=== PATIENT | female | born 1985 | race Caucasian/White ===

== ENCOUNTER 2018-11-25 23:41 | Emergency (ER) | payer BC ==
[~2018-11-25] VITALS: Ht 160 cm; Wt 63.5 kg
--- OUTSIDE RECORDS SUMMARY | 2018-11-25 23:43 | XMS REPORT | Encounter Summary ---
Author Organization Unknown Address [address] [place] [address] Phone [phone] Reason for Visit Medical Complaint Instructions 1. Upper respiratory infection upper respiratory infection (cold): care instructions 2. Feeling feverish rapid flu (A+B) 3. Pain in throat sore throat: care instructions rapid strep group A, throat Discussion Note: None recorded. Plan of Care Patient Instructions continue with zyrtec as directed. follow up obgyn Reminders Provider Appointments None recorded. Lab Rapid Flu (A+B) 04/06/2017 [facility] Rapid Strep Group a, Throat 04/06/2017 [facility] Referral None recorded. Procedures None recorded. Surgeries None recorded. Imaging None recorded. Medications Name Start Date alprazolam 0.5 mg tablet Apri 0.15 mg-0.03 mg tablet BD Eclipse Luer-Meron 25 gauge x 1 1/2" needle USE DIRECTED BD Integra Syringe 3 mL 22 gauge x 1 1/2" USE DIRECTED cabergoline 0.5 mg tablet enoxaparin 40 mg/0.4 mL subcutaneous syringe estradiol 2 mg tablet Gonal-F RFF Redi-Ject 900 unit/1.5 mL subcutaneous pen injector GUARDIAN Sharps Billboard Erector Helper USE DIRECTED ibuprofen 800 mg tablet leuprolide 1 mg/0.2 mL subcutaneous kit TAKE DIRECTED levothyroxine 25 mcg tablet metformin ER 500 mg tablet,extended release 24 hr Minivelle 0.1 mg/24 hr transdermal patch Neupogen 300 mcg/mL injection solution Omnitrope 5.8 mg subcutaneous solution INJECT 0.25ML EVERY DAY progesterone 50 mg/mL intramuscular oil progesterone micronized 200 mg capsule spironolactone 25 mg tablet Synera 70 mg-70 mg patch tramadol 50 mg tablet Medications Administered None recorded. Vitals Height Weight BMI Blood Pressure 5 ft 3 in 150 lbs 26.6 kg/m2 118/68 mm[Hg] Lab Results Date Name Specimen Result Interpretation Description Value Range Status Address Rapid Strep Group a, Throat Result negative [facility]: [address] [place] [address] Swab Location Left and Right tonsillar pillars [facility]: [address] [place] [address] Rapid Flu (A+B) Influenza a negative [facility]: [address] [place] [address] Influenza B negative [facility]: [facility] Allergies Code Code System Name Reaction Severity Status Onset NKDA Problems Name Status Onset Date Source Eustachian Tube Disorder Active Encounter Acute Upper Respiratory Infection Active Encounter Procedures None recorded. Vaccine List None recorded. Social History Smoking Status Never Smoker Past Encounters 04/06/2017 Upper Respiratory Infection; Feeling Feverish; Pain in Throat Rodney Nuñez MANAGER SHIPPING-C: [address] [place] [address], Ph. History of Present Illness Utykq-Vxsjwrajqa-Vdpdslh Reported By: Patient HPI: Location: head/sinuses, throat, chest. Quality: sore throat, nasal/sinus congestion, dry cough. Duration: 2days. Severity: moderate. Onset/Timing: gradual. Context: no sick contacts, no foreign travel, non-smoker. Modifying factors: OTC medication. Associated Symptoms: no sputum production, no shortness of breath, no wheezing, no change in number of pillows needed to sleep at night, no sweats, no significant weight gain, no significant weight loss, no morning cough, no vomiting, no diarrhea, no rash, no nausea, no fever, no muscle aches, no headache, sore throat Review of Systems:ROS as noted in the HPI Review of Systems Basic Reported By: Patient Physical Exam Adult Basic, Adult Female Complete Reported By: Patient Constitutional: General Appearance: healthy-appearing, well-nourished, well-developed. Level of Distress: NAD. Ambulation: ambulating normally Psychiatric: Mental Status: active and alert Eyes: Lids and Conjunctivae: non-injected, no discharge Dgs-Dplb-Lzkym-Throat: Ears: no lesions on external ear, no outer ear tenderness, EACs clear, TMs clear. Hearing: no hearing loss. Nose: no lesions on external nose, nasal discharge--rhinorrhea; congestion. Lips, Teeth, and Gums: no mouth or lip ulcers. Oropharynx: moist mucous membranes, no erythema, no exudates, tonsils not enlarged Neck: Neck: trachea midline. Lymph Nodes: no cervical LAD Lungs: Respiratory effort: no dyspnea, no tachypnea, no use of accessory muscles, no intercostal retractions. Auscultation: breath sounds normal Cardiovascular: Heart Auscultation: RRR, no murmurs
--- OUTSIDE RECORDS SUMMARY | 2018-11-25 23:43 | XMS REPORT | Encounter Summary ---
Author Organization Unknown Address [address] [place] [address] Phone [phone] Reason for Visit Medical Complaint Instructions 1. Influenza-like symptoms rapid flu (A+B) fluticasone 50 mcg/actuation nasal spray,suspension 2. Pain in throat rapid strep group A, throat sore throat: care instructions Lidocaine Viscous 2 % mucosal solution 3. Rhinitis dexamethasone 4 mg/mL injection solution 4. Body mass index 25-29 - overweight learning about healthy weight Discussion Note Pt is in NAD; Verbalizes understanding of all instructions with no questions at this time. Plan of Care Patient Instructions Before starting any of these medications please check with your financial associate or baby's sheriff's sergeant for clearance: Gargle and spit viscous lidocaine as needed for sore throat as directed. Take fluticasone as needed for congestion. [place] one spray in each nostril twice a day. Take a warm, steamy shower, blow your nose thereafter, and spray in each nostril. Tilt your head up for about 10 seconds and breath through your mouth. Do not sniff or snort the medication in or else the medication will go to your throat and not be absorbed appropriately. Ask your baby's sheriff's sergeant if you can take Mucinex DM (guafenesin/dextromethrophan) as per package insert for cough. Take over the counter german or benadryl for allergy like symptoms like runny nose, sneezing and watery eyes. Proper hydration and rest. Do not share any utensils/cups, no kissing, recommend hand washing after coughing/sneezing/blowing nose and cover face when you do so. Take medications as instructed. Follow up with your PCP or financial associate within 2-3 days if symptoms worsen as discussed. In case of an emergency call 911 or go to nearest ER. Recommend follow a low sodium/fat/carb diet and exercise 30-45 mins/d 3-4 days a week once symptoms resolve. Reminders Provider Appointments None recorded. Lab Rapid Flu (A+B) 04/07/2018 [facility] Rapid Strep Group a, Throat 04/07/2018 [facility] Referral None recorded. Procedures None recorded. Surgeries None recorded. Imaging None recorded. Medications Name Start Date dexamethasone 4 mg/mL injection solution Take 1 mL by injection route. fluticasone 50 mcg/actuation nasal spray,suspension [place] 2 sprays every day by intranasal route as needed. Lidocaine Viscous 2 % mucosal solution Take 15 mL every 3 hours by oral route as needed. metformin ER 500 mg tablet,extended release 24 hr 04/07/2018 Prena1 Chew Medications Administered Name Date dexamethasone 4 mg/mL injection solution Take 1 mL by injection route. [id number] Vitals Height Weight BMI Blood Pressure 5 ft 3 in 147 lbs 26 kg/m2 112/70 mm[Hg] Lab Results Date Name Specimen Result Interpretation Description Value Range Status Address Rapid Strep Group a, Throat Result negative [facility]: [address] [place] [address] Swab Location Left and Right tonsillar pillars [facility]: [address] [place] [address] Rapid Flu (A+B) Influenza a negative [facility]: [address] [place] [address] Influenza B negative [facility]: [address] [place] [address] Allergies Code Code System Name Reaction Severity Status Onset NKDA Problems Name Status Onset Date Source Polycystic Ovaries Active 04/07/2018 Body Mass Index 25-29 - Overweight Active 04/07/2018 Pain in Throat Active 04/07/2018 Rhinitis Active 04/07/2018 Influenza-like Symptoms Active 04/07/2018 Procedures None recorded. Vaccine List Vaccine Type Tdap 11/13/2017 Social History Smoking Status Never Smoker Past Encounters 04/07/2018 Influenza-like Symptoms; Pain in Throat; Rhinitis; Body Mass Index 25-29 - Overweight Tammy Nicolas, HAI-C: [address] [place] [address], Ph. History of Present Illness Iqwjvwt-Uimdz-Bbs Reported By: Patient HPI: Quality: symptoms worse during the day. Duration: 1 days. Context: no ill contacts, no tick/insect bites, no recent travel, no new medications. Associated Symptoms: no fever/chills, no headache, no muscle aches, no rash, no lethargy, cold symptoms, cough, nasal passage blockage (stuffiness), nasal discharge; sinus pressure,sneezing, sore throat, chills, and body aches. Modifying Factors nothing gives relief Review of Systems:ROS as noted in the HPI Review of Systems Basic Reported By: Patient Physical Exam Adult Basic, Adult Female Complete Reported By: Patient Constitutional: General Appearance: healthy-appearing, well-nourished, well-developed, overweight. Level of Distress: NAD. Ambulation: ambulating normally Psychiatric: Mental Status: active and alert. Orientation: to time, to place, to person Eyes: Lids and Conjunctivae: non-injected, no discharge, no pallor. Corneas: grossly intact. Lens: clear Rzj-Ukxw-Miwnc-Throat: Ears: no lesions on external ear, no outer ear tenderness, EACs clear, TMs clear. Hearing: no hearing loss. Nose: no lesions on external nose, nares patent, no septal deviation, nasal passages clear, no sinus tenderness, nasal discharge--rhinorrhea, post nasal drip; B/L NTs pink and edematous. Lips, Teeth, and Gums: no mouth or lip ulcers, no bleeding gums, normal dentition. Oropharynx: moist mucous membranes, no erythema, no exudates, tonsils not enlarged Neck: Neck: supple. Lymph Nodes: no cervical LAD Lungs: Respiratory effort: no dyspnea, no tachypnea, no use of accessory muscles, no intercostal retractions. Auscultation: breath sounds normal Cardiovascular: Heart Auscultation: RRR, no murmurs Neurologic: Gait and Station: normal gait, normal station. Cranial Nerves: grossly intact
--- OUTSIDE RECORDS SUMMARY | 2018-11-25 23:43 | XMS REPORT ---
Author Author [facility] Address Unknown Phone Unavailable Care Team Providers Care Experimental Preflight Mechanic Name Role Phone Unavailable Unavailable Problems This patient has no known problems. Allergies, Adverse Reactions, Alerts This patient has no known allergies or adverse reactions. Medications This patient has no known medications. Results Test Description Test Time Test Comments Text Results Atomic Results Result Comments PLACENTA THIRD TRIMESTER 2017-12-06 14:39:00 RUN DATE: 12/06/17 [facility] PAGE 1 RUN TIME: 1721 Specimen Inquiry RUN USER: INTERFACE PATIENT: NYDIA HERNÁNDEZ LOC: [facility] U #: [id number] AGE/SX: 32/F ROOM: 2005 RE12/04/17REG DR: Magali Giles MD : 84 BED: A DIS: 12/06/17 STATUS: DIS IN TLOC: SPEC #: [id number] RECD: 12/04/17 STATUS: MATTHEW ALDANA #: [id number] REMY: 12/04/17- SUBM DR: Magali Giles MD ENTERED: 12/05/17 SP TYPE: PLACIII OTHR DR: ORDERED: LEVEL V SURGICA CODES: TN2066 - PLACENTA, NOS PROCEDURES: LEVEL V SURGICA (Incomplete) TISSUES: PLACENTA, NOS - PLACENTA CLINICAL HISTORY 32 year old, IUP @ 39.4 weeks, [id number], vaginal delivery (kr) FINAL DIAGNOSIS Placenta, umbilical cord and membranes: - acute chorioamnionitis - 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 The following attributes are observed: Cord insertion: 4 cm from margin Cord length: 11 cm Number of vessels: 3 Cord color: Blue-zimmerman Other cord findings: None surface findings: Steel blue, wrinkled, glistening Vasculature: Displays unremarkable blood vasculature Membranes rupture site: 0.0 cm to margin Membrane color: Zimmerman CONTINUED ON NEXT PAGE ---RUN DATE: 12/06/17 [facility] PAGE 2 RUN TIME: 1721 Specimen Inquiry RUN USER: INTERFACE SPEC #: [id number] PATIENT: NYDIA HERNÁNDEZ #[id number] (Continued) GROSS DESCRIPTION (Continued) Other membrane findings: Thickened and opaque The trimmed placental weight: 522 gm Disk measurement: 24 x 18 x 2.5 cm in greatest dimension Accessory lobes: None Maternal surface: Lobulated, intact and contains zimmerman, firm lesions measuring up to 0.4 cm and involving less than 5% of the total placental tissue Parenchyma: Red, beefy, and spongy Parenchyma lesions: None Cassettes: A through D /wpd 12/05/17 @ 1048 MICROSCOPIC DESCRIPTION There is acute chorioamnionitis. There is early vasculitis of the umbilical cord vessels. Pigmented macrophages are present in the membranes. There is decidual vasculopathy. [facility]/wpd 12/06/17 @ 1434 Signed Zack Levin 12/06/17 [id number] END OF REPORT
--- OUTSIDE RECORDS SUMMARY | 2018-11-25 23:43 | XMS REPORT | Continuity of Care Document ---
Author Author [facility] Address Unknown Phone Unavailable Care Team Providers Care Cigarette Examiner Name Role Phone Cobase Unavailable Unavailable Problems Problem Status Onset Date Classification Date Reported Comments Source Body mass index 25-29 - overweight 04/07/2018 Diagnosis 04/07/2018 [facility] Pain in throat 04/07/2018 Diagnosis 04/07/2018 [facility] Influenza-like symptoms 04/07/2018 Diagnosis 04/07/2018 [facility] Polycystic Ovaries 04/07/2018 Problem 04/07/2018 [facility] Body Mass Index 25-29 - Overweight 04/07/2018 Problem 04/07/2018 [facility] Pain in Throat 04/07/2018 Problem 04/07/2018 [facility] Rhinitis 04/07/2018 Problem 04/07/2018 [facility] Influenza-like Symptoms 04/07/2018 Problem 04/07/2018 [facility] Upper respiratory infection 04/06/2017 Diagnosis 04/06/2017 [facility] Feeling feverish 04/06/2017 Diagnosis 04/06/2017 [facility] Acute upper respiratory infection 10/28/2015 Diagnosis 10/28/2015 [facility] Eustachian tube disorder 10/28/2015 Diagnosis 10/28/2015 [facility] Eustachian Tube Disorder Problem 04/06/2017 [facility] Acute Upper Respiratory Infection Problem 04/06/2017 [facility] Medications Medication Details Route Status Patient Instructions Ordering Provider Order Date Source 24 HR Metformin hydrochloride 500 MG Extended Release Oral Tablet metformin ER 500 mg tablet,extended release 24 hr Active 04/07/2018 [facility] Dexamethasone phosphate 4 MG/ML Injectable Solution dexamethasone 4 mg/mL injection solution Take 1 mL by injection route. Active [facility] Fluticasone propionate 0.05 MG/ACTUAT Metered Dose Nasal [place] fluticasone 50 mcg/actuation nasal spray,suspension [place] 2 sprays every day by intranasal route as needed. Active [facility] Lidocaine Hydrochloride 20 MG/ML Mucous Membrane Topical Solution Lidocaine Viscous 2 % mucosal solution Take 15 mL every 3 hours by oral route as needed. Active [facility] Prena1 Chew Prena1 Chew Active [facility] Alprazolam 0.5 MG Oral Tablet alprazolam 0.5 mg tablet Active [facility] Apri 0.15 mg-0.03 mg tablet Apri 0.15 mg-0.03 mg tablet Active [facility] BD Eclipse Luer-Meron 25 gauge x 1 1/2" needle BD Eclipse Luer-Meron 25 gauge x 1 /2" needle USE DIRECTED Active [facility] BD Integra Syringe 3 mL 22 gauge x 1 1/2" BD Integra Syringe 3 mL 22 gauge x 1 /2" USE DIRECTED Active [facility] cabergoline 0.5 MG Oral Tablet cabergoline 0.5 mg tablet Active [facility] 0.4 ML Enoxaparin sodium 100 MG/ML Prefilled Syringe enoxaparin 40 mg/0.4 mL subcutaneous syringe Active [facility] Estradiol 2 MG Oral Tablet estradiol 2 mg tablet Active [facility] 1.5 ML Follitropin Billy 600 UNT/ML Pen Injector [Gonal F] Gonal-F RFF Redi-Ject 900 unit/1.5 mL subcutaneous pen injector Active [facility] GUARDIAN Sharps [employer] Manager GUARDIAN [employer]ps [employer] Manager USE DIRECTED Active [facility] Ibuprofen 800 MG Oral Tablet ibuprofen 800 mg tablet Active [facility] Leuprolide Acetate 5 MG/ML Injectable Solution leuprolide 1 mg/0.2 mL subcutaneous kit TAKE DIRECTED Active [facility] Levothyroxine Sodium 0.025 MG Oral Tablet levothyroxine 25 mcg tablet Active [facility] 24 HR Metformin hydrochloride 500 MG Extended Release Oral Tablet metformin ER 500 mg tablet,extended release 24 hr Active [facility] 84 HR Estradiol 0.33782 MG/HR Transdermal System [Minivelle] Minivelle 0.1 mg/24 hr transdermal patch Active [facility] 1 ML Filgrastim 0.3 MG/ML Injection [Neupogen] Neupogen 300 mcg/mL injection solution Active [facility] Somatropin 5 MG/ML Injectable Solution [Omnitrope] Omnitrope 5.8 mg subcutaneous solution INJECT 0.25ML EVERY DAY Active [facility] Progesterone 50 MG/ML Injectable Solution progesterone 50 mg/mL intramuscular oil Active [facility] Progesterone 200 MG Oral Capsule progesterone micronized 200 mg capsule Active [facility] Spironolactone 25 MG Oral Tablet spironolactone 25 mg tablet Active [facility] Lidocaine 70 MG / Tetracaine 70 MG Medicated Patch [Synera] Synera 70 mg-70 mg patch Active [facility] tramadol hydrochloride 50 MG Oral Tablet tramadol 50 mg tablet Active [facility] Medrol (Des) 4 mg tablets in a dose pack Medrol (Des) 4 mg tablets in a dose pack Take med as directed on package. Active [facility] Dextromethorphan 3 MG/ML / Promethazine Hydrochloride 1.25 MG/ML Oral Solution promethazine-DM 6.25 mg-15 mg/5 mL syrup Take 5 mL as needed by oral route at bedtime for cough. Active [facility] Allergies, Adverse Reactions, Alerts No Known Medication Allergies Immunizations Immunization Date Given Site Status Last Updated Comments Source Tdap 11/13/2017 completed [facility] Results Order Name Results Value Reference Range Date Interpretation Comments Source RESULT negative 04/07/2018 [facility] SWAB LOCATION Left and Right tonsillar pillars 04/07/2018 [facility] Influenza A negative 04/07/2018 [facility] Influenza B negative 04/07/2018 [facility] RESULT negative 04/06/2017 [facility] SWAB LOCATION Left and Right tonsillar pillars 04/06/2017 [facility] Influenza A negative 04/06/2017 [facility] Influenza B negative 04/06/2017 [facility] Pathology Reports No Data Provided for This Section Diagnostic Reports No Data Provided for This Section Consultation Notes No Data Provided for This Section Discharge Summaries No Data Provided for This Section History and Physicals No Data Provided for This Section Vital Signs Vital Sign Value Date Comments Source Diastolic (mm Hg) 70 04/07/2018 [facility] Height 63 04/07/2018 [facility] Systolic (mm Hg) 112 04/07/2018 [facility] Weight 147 04/07/2018 [facility] Diastolic (mm Hg) 68 04/06/2017 [facility] Height 63 04/06/2017 [facility] Systolic (mm Hg) 118 04/06/2017 [facility] Weight 150 04/06/2017 [facility] Diastolic (mm Hg) 70 10/28/2015 [facility] Height 63 10/28/2015 [facility] Systolic (mm Hg) 108 10/28/2015 [facility] Weight 139 10/28/2015 [facility] Encounters Location Location Details Encounter Type Encounter Number Reason For Visit Attending Provider ADM Date DC Date Status Source [place] - [facility] - [id number] Jodee Whitfielduyen, FREIGHT ASSOCIATE: [address], [place] [address], Ph. [id number] Jodee Nuñez 10/28/2015 [facility] [place] [facility] - [id number] Rodney Savannah, FREIGHT ASSOCIATE-C: [address], [place] [address], Ph. [id number] Rodney Nuñez 04/06/2017 [facility] [place] - [facility] - [id number] Tammy Nicolas, FREIGHT ASSOCIATE-C: [address], [place] [address], Ph. [id number] Tammy Nicolas 04/07/2018 [facility] Procedures No Data Provided for This Section Assessment and Plan No Data Provided for This Section Plan of Care No Data Provided for This Section Social History Social History Date Source Smoking Status Never Smoker 10/28/2015 [facility] Family History No Data Provided for This Section Advance Directives No Data Provided for This Section Functional Status No Data Provided for This Section
--- OUTSIDE RECORDS SUMMARY | 2018-11-25 23:43 | XMS REPORT | Encounter Summary ---
Author Organization Unknown Address [address] [place] [id number] Phone [phone] Reason for Visit Medical Complaint; headache, ear pain, cough x 4 days Instructions 1. Acute upper respiratory infection Medrol (Des) 4 mg tablets in a dose pack promethazine-DM 6.25 mg-15 mg/5 mL syrup 2. Eustachian tube disorder Discussion Note: None recorded. Patient educational handouts: No information available. Plan of Care Patient Instructions Takemed as prescribed. Handwashing. Increase fluid intake and plenty of rest. May take tynenol/motrin for pain. may use cloraseptic throat spray for sore throat. Ok to take otc Rhinocort for congestion.If no improvement in 3 days, or worsening of symptoms, see primary care physician or call clinic. Reminders Provider Appointments Medical 10/29/2015 9:00AM [id number], [facility] Lab None recorded. Referral None recorded. Procedures None recorded. Surgeries None recorded. Imaging None recorded. Medications Name Start Date RFF Redi-Ject 900 unit/1.5 mL subcutaneous pen injector levothyroxine 25 mcg tablet Medrol (Des) 4 mg tablets in a dose pack Take med as directed on package. promethazine-DM 6.25 mg-15 mg/5 mL syrup Take 5 mL as needed by oral route at bedtime for cough. Medications Administered None recorded. Vitals Height Weight BMI Blood Pressure 5 ft 3 in 139 lbs 24.6 108/70 Lab Results None recorded. Allergies Name Reaction Severity Onset NKDA Problems Name Status Onset Date Source Eustachian Tube Disorder Active Encounter Acute Upper Respiratory Infection Active Encounter Procedures None recorded. Vaccine List None recorded. Social History Smoking Status Never Smoker Past Encounters 10/28/2015 Acute Upper Respiratory Infection; Eustachian Tube Disorder Jodee Nuñez, [employer]NA[employer]: [id number] [place] [address], Ph. History of Present Illness Ear Complaint Reported By: Patient HPI: Location: left. Quality: sharp. Severity: worse. Duration: intermittent. Onset/Timing: still present. Context: no sick contacts, no recent swimming/water in ear, no exposure to second hand smoke, no head trauma, not grinding teeth, no recent air travel. Modifying factors: does not hurt to lie on, or pull on ear, does not hurt to chew, OTC medication. Associated Symptoms: no discharge from the ears, no nose/sinus problems, no popping noise in the ears, no ringing in the ears, no fever, no chills, no dizziness, no vertigo, no headache, earache [id number] Reported By: Patient HPI: Location: head/sinuses. Quality: nasal/sinus congestion, dry cough. Duration: 4days. Severity: moderate. Onset/Timing: gradual. Context: no sick contacts, no foreign travel, non-smoker. Modifying factors: OTC medication. Associated Symptoms: no sputum production, no shortness of breath, no wheezing, no change in number of pillows needed to sleep at night, no sweats, no significant weight gain, no significant weight loss, no morning cough, no sore throat, no vomiting, no diarrhea, no rash, no nausea Review of Systems Basic Reported By: Patient Constitutional: Constitutional: no fever Eyes: Eyes: no eye complaints [id number]-Hvaa-Idiem-Throat: Ears: ear pain. Nose: nose/sinus problems. Mouth/Throat: no sore throat, no bleeding gums, no mouth complaints, no teeth problems Cardiovascular: Cardiovascular: no chest pain, no shortness of breath, no known heart murmur Respiratory: Respiratory: no wheezing, no shortness of breath, cough Gastrointestinal: Gastrointestinal: no abdominal pain, no vomiting / diarrhea Genitourinary: Genitourinary: no urinary complaints, no discharge Musculoskeletal: Musculoskeletal: no muscle aches, no muscle weakness, no arthralgias/joint pain, no back pain Skin: Skin: no abnormal / changing mole, no jaundice, no rashes Neurologic: Neurologic: no loss of consciousness, no weakness, no numbness, no seizures, no dizziness, no headaches Physical Exam Adult Basic, Adult Female Complete Constitutional: General Appearance: healthy-appearing, well-nourished, well-developed. Level of Distress: NAD. Ambulation: ambulating normally Psychiatric: Mental Status: active and alert. Orientation: to time, to place, to person Eyes: Lids and Conjunctivae: non-injected, no discharge, no pallor. Pupils: PERRLA. Corneas: grossly intact. EOM: EOMI. Lens: clear. Sclerae: non-icteric. Vision: acuity grossly intact Iwu-Ofrk-Rjicm-Throat: Ears: no lesions on external ear, no outer ear tenderness, EACs clear, TMs clear. Hearing: no hearing loss. Nose: no lesions on external nose, nares patent, no septal deviation, nasal passages clear, no sinus tenderness, nasal discharge--rhinorrhea. Lips, Teeth, and Gums: no mouth or lip ulcers, no bleeding gums, normal dentition. Oropharynx: moist mucous membranes, no erythema, no exudates, tonsils not enlarged Neck: Neck: supple, trachea midline, no masses, FROM. Lymph Nodes: no cervical LAD, no supraclavicular LAD. Thyroid: no enlargement, non-tender, no nodules Lungs: Respiratory effort: no dyspnea, no tachypnea, no use of accessory muscles, no intercostal retractions. Auscultation: rhonchi Cardiovascular: Heart Auscultation: RRR, no murmurs. Neck vessels: no carotid bruits
[2018-11-25 23:59] VITALS: BP 131/76
[2018-11-26] MEDS ORDERED: TRAMADOL HCL 50 MG TAB PO ONE
== END 2018-11-26 00:25 | disposition home or self-care (01) ==
LOC: ER 23:41
DX: S91.201A Unspecified open wound of right great toe with damage to nail, initial encounter (principal); W22.09XA Striking against other stationary object, initial encounter; Y92.008 Other place in unspecified non-institutional (private) residence as the place of occurrence of the external cause; N80.9 Endometriosis, unspecified
CPT/HCPCS: 99282